=== PATIENT | female | born 1970 | race Caucasian/White ===

== ENCOUNTER → 2016-08-13 | Outpatient (CLI) | payer OTHER ==
--- NOTE | 2016-08-14 13:26 | DI ---
XR ANKLE COMPLETE MIN 3VW,08/13/2016 3:18 PM: Clinical History: Status post right ORIF Previous Exam: None at this facility. Findings: 3 views of the right ankle are obtained, and demonstrate stable postsurgical changes consistent with a right ankle fracture. There is screw and plate fixation of the fibula as well as lag screw fixation of the medial malleolus. There is also a small fragment involving the posterior malleolus. There is enthesopathy noted at the insertion of the plantar fascia. Impression: No significant change from prior.
== END ==
LOC: ORTHO 15:26
PROVIDERS: ATTEND Orthopaedic Surgery
DX: S82.841E Displaced bimalleolar fracture of right lower leg, subsequent encounter for open fracture type I or II with routine healing (principal); M76.71 Peroneal tendinitis, right leg
CPT/HCPCS: 73610

== ENCOUNTER → 2016-08-29 | Outpatient (CLI) | payer OTHER ==
[2016-08-29 08:35] LABS: HEMATOCRIT 39.4 % (37.0-47.0); HEMOGLOBIN 13.2 g/dL (12.0-16.0); MEAN CORPUSCULAR HGB CONC 33.5 g/dL (33-37); MEAN CORPUSCULAR VOLUME 89.5 FL (81-99); MEAN PLATELET VOLUME 9.6 FL (7.4-12.2); RED BLOOD COUNT 4.4 10^6/uL (4.20-5.40)
[2016-08-29 09:00] LABS: BLOOD UREA NITROGEN 16 mg/dL (7-22); CALCIUM 9.2 mg/dL (8.7-10.7); CHOL/HDL RATIO 2.05 RATIO (0-4.0); EST GLOMERULAR FILTRATION > 60 (>60 ml/min/1.73m(2)); HDL CHOLESTEROL 79 mg/dL (40-150); SERUM ALBUMIN 4.2 g/dL (3.5-4.8); SERUM CHOLESTEROL 162 mg/dL (120-200)
== END ==
LOC: LAB 08:11
PROVIDERS: ATTEND Obstetrics & Gynecology Gynecology
DX: Z00.00 Encounter for general adult medical examination without abnormal findings (principal); E03.9 Hypothyroidism, unspecified
CPT/HCPCS: 36415; 80053; 80061; 84443; 85027